=== PATIENT | male | born 1970 ===

== ENCOUNTER → 2016-06-26 | Outpatient (CLI) | payer BC ==
--- NOTE | 2016-06-26 11:40 | ECHOS ---
DATE OF SERVICE: 06/26/2016 AGE: 46Y SEX: M HT: 66 WT: 215 lbs. Protocol Luis Miguel: x Others: Stress Echo Stage: IV Dur. of Exercise: 11:39 *Heart Rate Blood Pressure *Rest: 71 Rest: 129/82 * *Max. Achieved: 148 Maximum BP: 155/111 85% PMHR: 100% PMHR: *METS: 11.1 INDICATIONS: Palpitations. MEDICATIONS: Mrs. Smith is a 40-year-old gentleman with history of hypertension and hypercholesterolemia being evaluated for symptoms of palpitations. STRESS DATA: Baseline EKG showed sinus rhythm with normal KS interval and QRS duration. Blood pressure at rest is 129/82 with a pulse rate of 71. Patient walked on the Luis Miguel protocol for 11 minutes and 39 seconds, achieving a maximum heart rate of 148 with a blood pressure of 155/111. EKGs taken during and after the exercise did not reveal any significant changes except occasional PVCs. Baseline echo images show normal wall motion and thickening. Exercise echo images showed augmentation of the wall motion and thickening in all the segments. FINAL IMPRESSION: 1. Negative stress test. 2. Negative stress echo.
== END | disposition home or self-care (01) ==
LOC: RADNMMAIN 09:44
PROVIDERS: ATTEND Family Medicine
DX: R00.2 Palpitations (principal)
CPT/HCPCS: 93017; 93225; 93226; 93350